=== PATIENT | female | born 1965 | race Caucasian/White ===

== ENCOUNTER 2017-04-05 10:00 | Emergency (ER) | payer OTHER ==
[~2017-04-05] VITALS: Ht 160 cm; Wt 62.0 kg
[2017-04-05] MEDS ORDERED: D ME PO (10:17)
[2017-04-05] MEDS ORDERED: IBUP-1506 PO (10:17)
[2017-04-05] MEDS ORDERED: ACETAMINOPHEN 500 MG TABLET PO ONE (11:30)
[2017-04-05] MEDS ORDERED: IBUPROFEN 400 MG TABLET PO ONE (11:30)
[2017-04-05] MEDS ORDERED: GuaiFENesin/D-METHORPHAN [SUGAR-FREE] 200-20MG/10 ML SYRUP UDCUP PO ONE (11:30)
[2017-04-05 13:27] VITALS: BP 113/64
[2017-04-05 13:56] LABS: INFLUENZA TYPE A POSITIVE FOR TYPE A (NEGATIVE); INFLUENZA TYPE B NEGATIVE FOR TYPE B (NEGATIVE)
[2017-04-05] MEDS ORDERED: OSELTAMIVIR PHOSPHATE 75 MG CAPSULE PO ONE (14:15)
== END 2017-04-05 14:27 | disposition home or self-care (01) ==
LOC: EMS 10:19
DX: J11.1 Influenza due to unidentified influenza virus with other respiratory manifestations (principal); I10 Essential (primary) hypertension; Z90.710 Acquired absence of both cervix and uterus; Z79.899 Other long term (current) drug therapy
CPT/HCPCS: 87804; 99284